=== PATIENT | male | born 1950 | race Caucasian/White ===

== ENCOUNTER 2021-05-16 11:45 | Emergency (ER) | payer MEDICARE, MEDICAID ==
[~2021-05-16 11:45] MED LIST: NOCURR
== END 2021-05-16 12:00 | disposition left against medical advice (07) ==
LOC: EMS 11:45
DX: Z20.822 Contact with and (suspected) exposure to COVID-19 (principal); Z53.21 Procedure and treatment not carried out due to patient leaving prior to being seen by health care provider

== ENCOUNTER → 2021-05-18 | Day surgery (SDC) | payer MEDICARE ==
[2021-05-16 12:39] LABS: COVID AG,FIA SOURCE NASOPHARYNGEAL
[~2021-05-18] VITALS: Ht 182.9 cm; Wt 97.7 kg
[~2021-05-18] MED LIST changes: +KETOROLAC TROMETHAMINE 0.5% 5 ML OPHTHALMIC SOLUTION ONE; +KETOROLAC TROMETHAMINE 0.5% 5 ML OPHTHALMIC SOLUTION OS SCH; +MOXIFLOXACIN HCL 0.5% 3 ML OPHTHALMIC SOLUTION ONE; +MOXIFLOXACIN HCL 0.5% 3 ML OPHTHALMIC SOLUTION OS SCH; +PHENYLEPHRINE HCL 2.5% 2 ML OPHTHALMIC SOLUTION ONE; +PHENYLEPHRINE HCL 2.5% 2 ML OPHTHALMIC SOLUTION OS SCH; +RINGERS SOLUTION,LACTATED 500 ML IV ONE; +TROPICAMIDE 1% 2 ML OPHTHALMIC SOLUTION ONE; +TROPICAMIDE 1% 2 ML OPHTHALMIC SOLUTION OS SCH
== END | disposition still patient (30) ==
LOC: SURGERY 13:27
PROVIDERS: ATTEND Ophthalmology
DX: H25.11 Age-related nuclear cataract, right eye (principal); Z53.8 Procedure and treatment not carried out for other reasons
CPT/HCPCS: 87426; C9803; J7120